=== PATIENT | male | born 1990 | race Two or more races ===

== ENCOUNTER 2019-07-08 19:24 | Emergency (ER) | payer OTHER, MEDICAID ==
[~2019-07-08] VITALS: Ht 180.3 cm; Wt 68.0 kg
[2019-07-08 19:25] VITALS: BP 146/88
== END 2019-07-08 19:49 ==
LOC: ER 19:25
DX: S00.12XA Contusion of left eyelid and periocular area, initial encounter (principal); S80.812A Abrasion, left lower leg, initial encounter; S80.811A Abrasion, right lower leg, initial encounter; S60.512A Abrasion of left hand, initial encounter; S60.511A Abrasion of right hand, initial encounter; F15.10 Other stimulant abuse, uncomplicated; I10 Essential (primary) hypertension; Z60.2 Problems related to living alone; Y04.0XXA Assault by unarmed brawl or fight, initial encounter; Y93.89 Activity, other specified; Y92.89 Other specified places as the place of occurrence of the external cause; Y99.8 Other external cause status